=== PATIENT | female | born 1950 | race African-American/Black ===

== ENCOUNTER 2021-07-03 01:52 | Emergency (ER) | payer OTHER ==
[~2021-07-03] VITALS: Ht 165.1 cm; Wt 100.0 kg
[2021-07-03 02:00] VITALS: BP 160/80
== END 2021-07-03 03:43 | disposition left against medical advice (07) ==
LOC: ER 01:52
DX: Z53.21 Procedure and treatment not carried out due to patient leaving prior to being seen by health care provider (principal)